=== PATIENT | male | born 1985 | race Caucasian/White ===

== ENCOUNTER 2024-11-23 12:46 | Emergency (ER) | payer OTHER ==
[~2024-11-23] VITALS: Ht 172.7 cm; Wt 81.6 kg
[2024-11-23 12:57] VITALS: O2SAT 98
[2024-11-23 16:35] VITALS: BP 120/78; PULSE 88; RESP 14; TEMP 36.7; O2SAT 100
== END 2024-11-23 16:44 | disposition home or self-care (01) ==
LOC: ER 12:46
DX: S93.401A Sprain of unspecified ligament of right ankle, initial encounter (principal); S90.31XA Contusion of right foot, initial encounter; Y03.0XXA Assault by being hit or run over by motor vehicle, initial encounter; Y99.0 Civilian activity done for income or pay; Y92.89 Other specified places as the place of occurrence of the external cause
CPT/HCPCS: 73610; 73620; 99284